=== PATIENT | female | born 1965 | race Caucasian/White ===

== ENCOUNTER → 2024-08-13 | Outpatient (CLI) | payer OTHER ==
[2024-08-13 10:08] VITALS: BP 156/92; PULSE 94; RESP 16; TEMP 97.5
--- NOTE | 2024-08-13 14:33 | P.PAINPG ---
PQRS Measure Charge Sheet Comment: HISTORY OF PRESENT ILLNESS: A 59 yr old female as a referral from [facility] in [place], [place] presents today w severe and chronic neck pain > 1 yr secondary to C5-C7 anterior/ posterior fusions for evaluation. Pt states pain level is provoked at 10 /10 in intensity, intermittent, localized in the lower cervical sipne, predominantly axial, burning in character w occasional shooting pain towards the LUE. Pain is provoked by any activity. Pain is alleviated by PT x 6 wks which ended in 2022, physician guided home exercises 4-5 times weekly since 2022, medications (Socorro 7.5/325mg #90, Ibu), topical Icy-Hot, heat, repositioning and rest . PMH: OA, PSH: x2, Partial Hysterectomy SH: Daily tobacco use, Occ ETOH use, No illicit drug use FH: Mo- CA. Fa- CA All: See list Meds: See list REVIEW OF ORGAN SYSTEMS: CONSTITUTIONAL: No fevers or chills. No recent weight loss. NEUROLOGICAL: + numbness and tingling along the distal extremities. No seizure disorders or headaches. MUSCULOSKELETAL: + pain PSYCHIATRIC: Denies current depression or suicidal thoughts. Physical Examinations : Constitutional : Cooperative , not in acute distress . Neurologic : Cranial nerve II to XII intact. No focal neurological deficits. Psychiatric : alert & oriented x 3. Matching mood & appropriate affect. Judgment & insight intact. Musculoskeletal : Cervical Spine Motor strength in the deltoid and biceps: Normal right side. Normal Left side Motor strength biceps and the wrist extensors: Normal right side . Normal left side Motor strength in the triceps muscle: Normal right side. Normal left side Deep tendon reflexes: Normal at the biceps. Normal at Brachioradialis. Normal at triceps Vertebral body tenderness to deep palp ation over C7 Cervical facet loading test: positive bilaterally Spurling test: positive L C6-C7 Neck distraction test: positive bilaterally Farzana sign: positive bilaterally Lumbar spine Motor strength lower extremities ,thigh and legs 5/5 Right side , 5/5 Left side Deep tendon reflexes : Normal Knee Jerk. Normal Ankle Jerk Vertebral body tenderness over Hughes Test positive Lumbar facet Loading Test: positive Right / positive Left Range of motion of the lumbar spine Flexion 30 degrees, extension 10 degrees Straight Leg Raise test: Left/ Right positive at degrees Caryn test: positive right / positive left. Severe tenderness over the Sacroiliac joint on the Right / Left sides Gaenslen test: positive bilaterally Seated flexion test: positive bilaterally. Sacral spine : Severe tenderness over the Sacroiliac joint: right side / left side Range of motion: Flexion of the lumbar spine <60 degrees Range of motion: Extension of the lumbar spine <20 degrees Gaenslen's Test positive Caryn test: positive right side / left side Thigh Thrust Test Sacral Thrust Test Imaging: MRI non contrast cervical spine from 05/26/24 reviewed Assessment/ Plan : C5-C7 anterior/ posterior fusions Recommendation of L TFESI C6-C7 #1. Risks, benefits of procedure discussed and patient verbalized understanding. Admits to anti- coagulant use or medical history of diabetes. Protocol for discontinuation/ continuation of medications kenn procedure discussed. Socorro 5/325mg #90 w 1 RF. Use, side effects, adverse reactions, safe storage discussed. Opiate/ narcotic agreement signed 08/13/24. All questions answered. I have spent greater than 30 minutes on patient care today. Dr Vernon was available by phone for the evaluation of this patient. The time was used to r eview the medical records including relevant urine studies and Prescription history (MAPs), review of the available imaging, evaluation and examination of the patient, coordination of care with the medical staff and if applicable referring physicians, as well as creation of the medical record - Pain Location Bilateral Lower Back Non-Pharmacological Interventions: Heat, Inactivity, Physical Therapy, Position/Reposition Pharmacological Interventions: Block, Epidural, PRN Medication, Scheduled Medication, Topical Medication Home Medications: Ambulatory Orders HYDROcodone/APAP 5-325MG [Socorro 5-325] 1 tab PO TID PRN 30 Days #90 tab 08/13/24 HYDROcodone/APAP 5-325MG [Socorro 5-325] 1 tab PO TID PRN 30 Days #90 tab 08/13/24 Ibuprofen 800 mg PO Q8H 08/13/24 Controlled Substance Measures - Controlled Substance Measures Is patient prescribed a controlled substance at discharge?: Yes When asked, does pt state using other controlled substances?: No If prescribed controlled substance>3 days was MAPS reviewed?: Yes If Rx opioid, was Start Talking consent form obtained?: Yes Was information provided regarding opioid addiction?: Yes
== END ==
LOC: PNWHC3 09:38
PROVIDERS: ATTEND Specialist
DX: M53.2X2 Spinal instabilities, cervical region (principal)
CPT/HCPCS: 99202